=== PATIENT | female | born 1955 | race Caucasian/White ===

== ENCOUNTER 2016-05-10 13:25 | Emergency (ER) | payer OTHER ==
[2016-05-10 14:03] VITALS: PULSE 80; RESP 20; TEMP 98.2; O2SAT 96
[2016-05-10 14:17] VITALS: BP 220/120
--- NOTE | 2016-05-10 14:19 | UCPHY ---
H & P Patient Type: New Chief Complaint Nursing Narrative: flu s/s cough snce saturday . bodyaches. OTC dayquil and nyquil. Today dizzy with cough. Time Seen by Provider: 05/10/16 14:06 HPI/ROS: CHIEF COMPLAINT: [cough. 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 Associated with this there has been headache, symptomatic fevers although she did not check at home, total body aches, and mild rhinorrhea. She had no antecedent URI to suggest a sinus infection no sore throat No known exposure per se but she does work in a call center were a lot of people have been sick as well ] She has had prior evaluations the suggested she had high blood pressure but she has not taken these medications in the past - though she was 1 1 for while it made her feel lightheaded so she stopped. She cannot recall the name of it: REVIEW OF SYSTEMS: Constitutional: See above Eyes: No discharge ENT: No sore throat. Cardiovascular: No chest pain, no palpitations. Respiratory: A she has a cough she has no, shortness of breath, or wheezing. The cough is dry Gastrointestinal: No nausea vomiting or diarrhea. No abdominal pain. Genitourinary: No hematuria or frequency. Musculoskeletal: No back pain. Skin: No rashes. Neurological: No headache. 10 point ROS otherwise negative Source: Patient Exam Limitations: No limitations - Medical/Surgical History Hx Asthma: No Hx Chronic Respiratory Disease: No Hx Diabetes: No Hx Cardiac Disease: No Hx Renal Disease: No Hx Cirrhosis: No Hx Alcoholism: No Hx HIV/AIDS: No Hx Splenectomy or Spleen Trauma: No Other PMH: PCP None. TETanus ??? Flu vacc Utd . Surgeries GB / knee. Thyroid - Family History Significant Family History: No pertinent family hx - Social History Smoking Status: Never smoked Alcohol Use: None Drug Use: None - Physical Exam Exam: General Appearance: Alert, no distress. Afebrile. Normal phonation. No respiratory distress. Obese. blood pressure strikingly high. Even when checked with a larger cuff due to her circumference of her biceps. Eyes: Pupils equal and round no pallor or injection. No icterus ENT, Mouth: Mucous membranes moist. Pharynx without erythema or exudate. TM Clear. Sinuses nontender Neck: No adenopathy. Supple. No JVD. Trachea in midline. Respiratory: There are no retractions, lungs are clear to auscultation. Cardiovascular: Regular rate and rhythm. Abdomen: Soft and nontender, no masses, bowel sounds normal. Neurological: Ox3. No motor weakness. Sensation intact. Gait nl. Skin: Warm and dry, no rashes. Musculoskeletal: No joint swelling. Extremities: No edema. Psychiatric: In good spirits, pleasant demeanor though she feels miserable Constitutional: Initial Vital Signs Temperature (C) 36.8 C 05/10/16 13:57 Heart Rate 80 05/10/16 13:57 Respiratory Rate 20 05/10/16 13:57 Blood Pressure 247/125 H 05/10/16 13:57 O2 Sat (%) 96 05/10/16 13:57 O2 Delivery Mode Room Air Allergies/Adverse Reactions: No Known Allergies Allergy (Unverified 05/10/16 14:03) Home Medications: Medication Instructions Recorded Alprazolam 05/10/16 Benzonatate 200 mg PO TID PRN #28 capsule 05/10/16 Estradiol 05/10/16 Hydrochlorothiazide [HCTZ (*)] 12.5 mg PO DAILY #30 cap 05/10/16 Lisinopril 10 mg PO DAILY #30 tablet 05/10/16 Synthroid 175 mcg (*) 05/10/16 Medical Decision Making - Diagnostics EKG Interpretation: EKG: Interpreted by me contemporaneously. Normal sinus rhythm. Heart rate [ 79 ]. QTc [ for 91] STT segment: Normal T Waves: Normal Summary: LVH with prolonged QT Imaging: Chest x-ray. Two-view chest. Interpreted by me contemporaneously. Cardiomegaly. No infiltrates. No pneumonia. ED Course/Re-evaluation: Blood pressure was rechecked over course of time issue improved down to 190/110 spontaneously. The long conversation regarding blood pressure management. In view of the extent of elevation should leave into agents though started at low dosing. I do not see the current illness to have a significant role in trip accounting for the extent of his blood pressure elevation. Furthermore I am worried in view of her LVH is noted on EKG and her cardiomegaly his chest x-ray that indeed she may have been noncompliant for quite some time. I have consider coronary. Laboratory studies were encouraging with a normal CBC as well as normal electrolytes and normal renal function with a negative troponin Differential Diagnosis: Diagnostic considerations include, but are not limited to, the following: Pneumonia, influenza, hypertension, cardiomegaly, noncompliance, URI, viral illness, CHF, ACS. - Data Points Laboratory Results: Laboratory Results 05/10/16 15:03 05/10/16 15:03 05/10/16 15:03 WBC 5.99 10^3/uL (3.80-9.50) RBC 4.73 10^6/uL (4.18-5.33) Hgb 14.3 g/dL (12.6-16.3) Hct 41.8 % (38.0-47.0) MCV 88.4 fL (81.5-99.8) MCH 30.2 pg (27.9-34.1) MCHC 34.2 g/dL (32.4-36.7) RDW 15.7 H % (11.5-15.2) Plt Count 275 10^3/uL (150-400) MPV 9.9 fL (8.7-11.7) Neut % (Auto) 65.2 % (39.3-74.2) Lymph % (Auto) 21.9 % (15.0-45.0) Rock % (Auto) 9.2 % (4.5-13.0) Eos % (Auto) 3.0 % (0.6-7.6) Baso % (Auto) 0.5 % (0.3-1.7) Nucleat RBC Rel Count 0.0 % (0.0-0.2) Absolute Neuts (auto) 3.91 10^3/uL (1.70-6.50) Absolute Lymphs (auto) 1.31 10^3/uL (1.00-3.00) Absolute Monos (auto) 0.55 10^3/uL (0.30-0.80) Absolute Eos (auto) 0.18 10^3/uL (0.03-0.40) Absolute Basos (auto) 0.03 10^3/uL (0.02-0.10) Absolute Nucleated RBC 0.00 10^3/uL (0-0.01) Immature Gran % 0.2 % (0.0-1.1) Immature Gran # 0.01 10^3/uL (0.00-0.10) Sodium 140 mEq/L (134-144) Potassium 4.1 mEq/L (3.5-5.2) Chloride 105 mEq/L (97-110) Carbon Dioxide 23 mEq/l (22-31) Anion Gap 12 mEq/L (8-16) BUN 7 mg/dL (7-23) Creatinine 1.0 mg/dL (0.6-1.0) Estimated GFR 57 Glucose 91 mg/dL (70-100) Calcium 9.2 mg/dL (8.5-10.4) Troponin I < 0.012 ng/mL (0-0.034) Departure - Departure Disposition: Home, Routine, Self-Care Clinical Impression: Influenza, Influenza-like illness Hypertension Qualifiers: Qualifier Code: (I10) Essential (primary) hypertension Condition: Good Instructions: Hypertension (ED) Additional Instructions: It is time to take some blood pressure medicines, the start lisinopril. For cough the following may work: Benzonatate or [id number] Delsym (4 tsp twice a day). Do not take both Your contagious, stay home. For the results in 2 hours. Referrals: NONE *PRIMARY CARE P,. [Primary Care Provider] - As per Instructions Stand Alone Forms: Work Excuse Prescriptions: Benzonatate 200 mg PO TID PRN #28 capsule PRN Reason: Cough, Moderate Hydrochlorothiazide [HCTZ (*)] 12.5 mg PO DAILY #30 cap Lisinopril 10 mg PO DAILY #30 tablet - PQRS PQRS Measurement: Not applicable
[2016-05-10 15:12] LABS: % IMMATURE GRANULYOCYTES 0.2 % (0.0-1.1); ABSOLUTE IMMATURE GRANULOCYTES 0.01 10^3/uL (0.00-0.10); ADD DIFF? NO; ADD MORPH? NO; ADD SCAN? NO; ATYPICAL LYMPHOCYTE FLAG 0 (0-99); FRAGMENT RBC FLAG 0 (0-99); HEMATOCRIT 41.8 % (38.0-47.0); HEMOGLOBIN 14.3 g/dL (12.6-16.3); LEFT SHIFT FLG 10 (0-99); LIPEMIA HEMOLYSIS FLAG 90 (0-99); MEAN CELL HEMOGLOBIN 30.2 pg (27.9-34.1); MEAN CELL HEMOGLOBIN CONCENTR. 34.2 g/dL (32.4-36.7); MEAN CELL VOLUME 88.4 fL (81.5-99.8); MEAN PLATELET VOLUME 9.9 fL (8.7-11.7); PLATELET CLUMPS FLAG 0 (0-99); PLATELET COUNT 275 10^3/uL (150-400); RED BLOOD CELL COUNT 4.73 10^6/uL (4.18-5.33); RED CELL DISTRIBUTION WIDTH 15.7 % (11.5-15.2)
--- NOTE | 2016-05-10 15:12 | CPEKG ---
Heart Rate: 79 RR Interval: 759 P-R Interval: 180 QRSD Interval: 82 QT Interval: 428 QTC Interval: 491 P [place]: 45 QRS [place]: -20 T Wave [place]: 85 EKG Severity - ABNORMAL ECG - EKG Impression: SINUS RHYTHM EKG Impression: CONSIDER LEFT VENTRICULAR HYPERTROPHY EKG Impression: BORDERLINE PROLONGED QT INTERVAL Electronically Signed By: César Gutierrez 10-May-2016 15:57:44
[2016-05-10 15:21] LABS: ANION GAP 12 mEq/L (8-16); CALCIUM 9.2 mg/dL (8.5-10.4); CARBON DIOXIDE 23 mEq/l (22-31); CHLORIDE 105 mEq/L (97-110); GLOMERULAR FILTRATION RATE 57; GLUCOSE 91 mg/dL (70-100); POTASSIUM 4.1 mEq/L (3.5-5.2); SODIUM 140 mEq/L (134-144)
--- NOTE | 2016-05-10 15:23 | DX ---
Chest, PA and Lateral. 10 May 2016 History: Cough. Comparisons: None. Findings: Heart size is enlarged. The aorta is tortuous. Pulmonary vascularity appears normal. Peribr onchial wall thickening is seen bilaterally. No evidence for pleural effusion or pneumothorax. Surgic al clips are seen in the upper abdomen. Impression: Mild/moderate cardiomegaly. Moderate bronchitis.
[2016-05-10 15:34] LABS: TROPONIN I < 0.012 ng/mL (0-0.034)
== END 2016-05-10 16:49 | disposition home or self-care (01) ==
LOC: CED 13:25
DX: J06.9 Acute upper respiratory infection, unspecified (principal); I10 Essential (primary) hypertension; I51.7 Cardiomegaly
CPT/HCPCS: 71020-PO; 80048-PO; 84484-PO; 85025-PO; 93010-PO; 99205-PO; G0463-PO